=== PATIENT | female | born 1965 | race Caucasian/White ===

== ENCOUNTER 2016-05-30 01:10 | Emergency (ER) | payer OTHER ==
--- NOTE | 2016-05-30 19:18 | ER ---
ADMIT: 05/30/2016 RM/LOC: ER [facility] MR#: [id number] [address] [id number] BAMBI KEVINKAMILLANIRANJAN Raza [address] [place] [address] Emergency Room Report SEX: F AGE: 50 : 1965 DATE: 05/30/2016 HISTORY OF PRESENT ILLNESS: The patient is a 50-year-old female with past medical history of COPD, came to the ER with chief complaint of left anterior chest pain for the last 8 days, which is pleuritic and also increases with palpation of the area. The patient denies any previous pain in the past. The patient denies any recent rashes. PHYSICAL EXAMINATION: GENERAL: The patient was in [id number] distress. VITAL SIGNS: The patient was at baseline O2 saturation of 90%, which she has been at home all the time in 89% to 90% and states she does not feel more short of breath. The patient was afebrile. HEART: EKG did not show any ST or T changes. Chest x-ray was negative for any acute changes. Also, the patient had no obvious chest wall tenderness on palpation. Normal breath sounds. S1 and S2 were normal. ABDOMEN: Soft. The rest of the physical examination is noncontributory. The patient had mild bilateral wheezing without any crackles. The patient received breathing treatment in the ER, which resolved wheezing. Considering the patient's presentation, chest wall pain is at the top of our differentials. Pain was controlled, the patient was reassured, and advised to follow up with the primary care doctor as needed. Mayco Rush MD/ peter JOB #: [id number] CC: Mayco Rush MD, Attending Physician Cindy Carcamo MD, Family Physician
== END 2016-05-30 03:50 | disposition home or self-care (01) ==
LOC: ER 01:10
DX: J44.9 Chronic obstructive pulmonary disease, unspecified (principal); R07.89 Other chest pain; E03.9 Hypothyroidism, unspecified; F17.210 Nicotine dependence, cigarettes, uncomplicated; Z79.899 Other long term (current) drug therapy; Z88.8 Allergy status to other drugs, medicaments and biological substances